=== PATIENT | male | born 1990 | race Two or more races ===

== ENCOUNTER 2023-08-17 11:46 | Emergency (ER) | payer OTHER ==
[~2023-08-17] VITALS: Ht 157.5 cm; Wt 59.0 kg
[2023-08-17 12:28] VITALS: BP 125/83; TEMP 97.4; O2SAT 100
[2023-08-17] MEDS ORDERED: CEPHALEXIN MONOHYDRATE 500 MG CAPSULE PO ONE (12:29)
[2023-08-17] MEDS ORDERED: TDAP [DIPH/PERTUSSIS/TET] 0.5 ML VIAL IM ONE (12:29)
[2023-08-17] MEDS: TDAP [DIPH/PERTUSSIS/TET] 0.5 ML VIAL IM ONE (12:46)
[2023-08-17] MEDS: CEPHALEXIN MONOHYDRATE 500 MG CAPSULE PO ONE (12:46)
[2023-08-17] MEDS ORDERED: CEPH-570 PO (13:22)
== END 2023-08-17 13:32 ==
LOC: ER 11:50
DX: S93.401A Sprain of unspecified ligament of right ankle, initial encounter (principal); S90.811A Abrasion, right foot, initial encounter; L08.89 Other specified local infections of the skin and subcutaneous tissue; X50.1XXA Overexertion from prolonged static or awkward postures, initial encounter; Y93.89 Activity, other specified; Y92.89 Other specified places as the place of occurrence of the external cause; Y99.8 Other external cause status
CPT/HCPCS: 99284; 90471; 90715; 73610; 73630; 73590; A6253